=== PATIENT | male | born 1970 | race Caucasian/White ===

== ENCOUNTER 2025-08-08 10:18 | Day surgery (SDC) | payer OTHER, SELFPAY ==
[2025-08-02 13:32] VITALS: BMI 26.3
--- NOTE | 2025-08-05 17:43 | EXP.HP ---
History of Present Illness *Admission Date: 08/08/25 *History of present illness: Mr. Vieira is a 55-year-old gentleman who is here for follow-up screening/surveillance colonoscopy. The patient does state that his 2 paternal uncles had colon cancer in their late 60s or early 70s. The patient did have a colonoscopy in May 2018 and had 3 polyps (small mucosal prolapse polyps x 3) removed.The examination is deemed medically necessary for screening/surveillance colonoscopy. The patient has been seen, interviewed and examined prior to the procedure by both myself and the anesthesia provider. [facility] Disclaimer: The information contained in this section may have been updated after the patient was seen, as this information can be updated by other users. Medical History Gout HTN (hypertension) Surgical History History of arthroscopy of left knee Family History Other Aneurysm Stroke Social History (Updated 08/08/25 @ 10:49 by Janna Stockton CRNA) Smoking Status: Never smoker alcohol intake: never substance use type: unknown current occupational status: employed Travel in the last 8 weeks?: Outside the continental [place] caffeine: Yes Have you lived/traveled outside [place] in past 30 days?: No Contact w/someone who lives/traveled outside [place] past 30 days?: No Exposure to someone with infectious disease in past 14 days?: No Do you have a fever (greater than 100.4 F or 38 C)?: No Have you tested positive for COVID-19?: No Exposed to someone with COVID-19 in past 14 days?: No Do you have a sore throat?: No Do you have a cough?: No Do you have any weakness?: No Are you experiencing any nausea/vomitting?: No Do you have any diarrhea?: No Are you experiencing any unusual bleeding?: No Do you have any muscle aches/pain?: No Do you have any abdominal pain?: No Are you experiencing loss of taste or smell?: No Review of Systems Review of Systems Review of systems (narrative): Negative *Cardiovascular Comments: Negative *Gastrointestinal Comments: Negative *Genitourinary Comments: Negative *Musculoskeletal Comments: Negative *Neurologic Comments: Negative Meds Home Medications and Allergies Home Medications ?Medication ?Instructions ?Recorded ?Confirmed ?Type sodium,potassium,mag sulfates 17.5 See Rx Instructions PO .COMPLEX 07/26/25 Rx gram-3.13 gram-1.6 gram oral soln #354 mL (Suprep Bowel Prep Kit) allopurinol 300 mg tablet 300 mg PO DAILY 08/02/25 08/02/25 History amlodipine 10 mg tablet 10 mg PO DAILY 08/02/25 08/08/25 History hydrochlorothiazide 25 mg tablet 25 mg PO DAILY 08/02/25 08/02/25 History lisinopril 40 mg tablet 40 mg PO DAILY 08/02/25 08/08/25 History New Prescriptions to Start Prescriptions: Allergies Allergy/AdvReac Type Severity Reaction Status Date / Time No Known Allergies Allergy Verified 08/08/25 10:30 Exam Data for Last 24 hours I & O for Last 24 hours: Intake & Output 08/02/25 08/03/25 08/04/25 08/05/25 23:59 23:59 23:59 23:59 Weight 205 lb *Routine HEENT Exam Head: Present normocephalic Eye: Present EOMI and PERRL ENT: Present mucous membranes moist *Routine Neck Exam Neck: Present supple *Routine Respiratory Exam Respiratory: Present CTA bilaterally *Routine Cardiovascular Exam Cardiovascular: Present RRR *Routine Abdominal Exam Abdominal: Present soft and normoactive bowel sounds; Absent tenderness *Routine Rectal Exam Rectal:: deferred *Routine Genitalia Exam Genitalia:: deferred *Routine Extremities Exam Extremities: Absent cyanosis, clubbing or edema *Routine Skin Exam Skin: Present warm; Absent rash *Routine Neurological Exam Neurological: Present alert and oriented X3 Assessment and Plan *Assessment and plan (1) Screening for colon cancer: Status: Acute Category: Medical Code(s): Z12.11 - Encounter for screening for malignant neoplasm of colon (2) Personal history of colon polyps, unspecified: Status: Acute Category: Medical Code(s): Z86.0100 - Personal history of colon polyps, unspecified (3) Family history of colon cancer: Status: Acute Category: Medical Code(s): Z80.0 - Family history of malignant neoplasm of digestive organs Plan A/P: 1. Screening for colon cancer with family history of colon cancer and personal history of colon polyps (unspecified?mucosal prolapse polyp) is the preprocedural diagnosis. The patient will be anesthetized/sedated using MAC sedation. The patient has been seen and examined. Cardiac and lung assessment prior to the examination is stable. Proceed with planned screening colonoscopy.
--- NOTE | 2025-08-08 07:21 | HMH.PROCNOTE ---
[facility] Procedure Note Date: 08/08/25 Time: 11:26 Procedure Note:: Colonoscopy Procedure Report: Colonoscopy cold snare polypectomy Endoscopist: Blayne Smith II, MD Referring physician: Jr Laird MD Date of Procedure: August 08, 2025 Equipment: Olympus [id number] adult colonoscope Sedation: MAC sedation Indication: Mr. Vieira is a 55-year-old gentleman who is here for follow-up screening/surveillance colonoscopy. The patient does state that his 2 paternal uncles had colon cancer in their late 60s or early 70s. The patient did have a colonoscopy in May 2018 and had 3 polyps (small mucosal prolapse polyps x 3) removed. He reports no abdominal pain, weight loss, change in his bowel habits or rectal bleeding. Procedure: Prior to the procedure, a history and physical exam was performed, and patient's medications and allergies were reviewed. The risks, benefits and alternatives of the sedation and procedure were discussed with the patient. All questions were answered and informed consent was obtained. The patient was brought to the procedure room. Patient identification and proposed procedure were verified by the physician and the nurse. The patient was placed in a left lateral decubitus position and the scope was passed under direct vision. Throughout the procedure, the patient's blood pressure, pulse, and oxygen saturations were monitored continuously. The colonoscopy was accomplished without difficulty. The patient tolerated the procedure well. Findings: On digital rectal examination there was normal rectal tone. There were no external hemorrhoids. The colonoscope was introduced through the anal canal to the rectum and advanced to the cecum. The ileocecal valve and appendiceal orifice were identified. The scope was advanced a short distance into the ileum which appeared grossly normal. The scope was then withdrawn into the colon. There were 3 diminutive polyps (cecum x 1 (2 mm), transverse x 1 (5 mm) and descending x 1 (4 mm)). These were all removed via cold snare polypectomy. The remaining cecum, ascending, transverse, descending, sigmoid and rectum were grossly normal. There were no other mucosal abnormalities identified. Upon retroflexion within the rectum there were grade 1-2 internal hemorrhoids. The preparation was excellent throughout with [place] Preparation Score of 9. The cecal time was 12 minutes. Impression: 1. Diminutive colonic polyps x 3 Plan: I will follow-up the polyp histology and recommend repeat screening/surveillance colonoscopy again in 5 to 7 years based on pathology. I would encourage bulking psyllium fiber supplementation on a maintenance basis.
[2025-08-08 10:32] VITALS: BP 142/75; RESP 18; TEMP 36.4; O2SAT 98
[2025-08-08] MEDS: LACTATED RINGERS 1000ML 1,000 ML 50 ML IV (10:43)
--- NOTE | 2025-08-08 10:48 | P.PNANES_ITS ---
[facility] Disclaimer: The information contained in this section may have been updated after the patient was seen, as this information can be updated by other users. Medical History Gout HTN (hypertension) Surgical History History of arthroscopy of left knee Family History Other Aneurysm Stroke Social History Smoking Status: Never smoker alcohol intake: never substance use type: unknown current occupational status: employed Travel in the last 8 weeks?: Outside the [facility] caffeine: Yes [facility] Anesthesia Checklist Patient Identification Patient Identification: Arm Band and Verbal (Name & ) Structural Data Admitted From: Home Planned Operative Procedure/s: colonscopy Consent for Planned Operative Procedure(s) Verified: Yes Verified Documents: Surgical Consent and History and Physical NPO Status Verified Time NPO: 00:00 Additional verifications Anesthesia Reactions: No Airway Assessment Mallampati Score:: Class II Dentition: Good Dentition Neurological Assessment Level of Consciousness: Awake, Alert and Appropriate Hx Seizures: No Numbness or tingling in extremities: No Anesthesia Plan Anesthesia Risk discussed: Yes Anesthesia Plan: Verified ASA Class: II Anesthesia Type: MAC
[2025-08-08 11:27] VITALS: BP 122/81; PULSE 71; RESP 18; TEMP 36.1; O2SAT 97
[2025-08-08 11:37] VITALS: BP 127/83; PULSE 63; RESP 18; TEMP 36.1; O2SAT 97
[2025-08-08 11:47] VITALS: BP 138/86; PULSE 62; RESP 18; TEMP 36.1; O2SAT 98
[2025-08-08 11:57] VITALS: BP 142/61; PULSE 64; RESP 18; TEMP 36.1; O2SAT 98
== END 2025-08-08 12:27 | disposition home or self-care (01) ==
PROVIDERS: PCP Family Medicine; Visit Provider Internal Medicine Gastroenterology
PROC: 0DJD8ZZ Inspection of Lower Intestinal Tract, Via Natural or Artificial Opening Endoscopic (ICD-10-PCS; CPT 45378; principal; 2025-08-08 12:00)
DX: Z12.11 Encounter for screening for malignant neoplasm of colon (principal); D12.0 Benign neoplasm of cecum; D12.4 Benign neoplasm of descending colon; D12.3 Benign neoplasm of transverse colon; K64.0 First degree hemorrhoids; K64.1 Second degree hemorrhoids; I10 Essential (primary) hypertension; M10.9 Gout, unspecified; Z86.0100 Personal history of colon polyps, unspecified; Z80.0 Family history of malignant neoplasm of digestive organs
CPT/HCPCS: 45385; J2003; J2704; J7120